=== PATIENT | female | born 1940 | race Caucasian/White ===

== ENCOUNTER 2018-05-20 07:12 | Day surgery (SDC) | payer MEDICARE, OTHER ==
[~2018-05-20 07:12] MED LIST: Cefuroxime 10 MG/ML SYRINGE EYELF SCH; Lidocaine 1% PF 2 ML SDV INJECT SCH; Pilocarpine 4% Ophth Soln 15 ML Bot EYELF SCH; Polymyxin B/Trimethoprim 10 ML Bottle EYELF SCH
[2018-05-20] MEDS: Ofloxacin 0.3% Ophth Soln 5 ML Bottle EYELF SCH ×3 (07:21→08:27)
[2018-05-20] MEDS: Brimonidine 0.2% Ophth Soln 5 ML Bottle EYELF SCH ×2 (07:25→07:52)
--- NOTE | 2018-05-20 07:26 | PCM.PREANE ---
Preanesthetic Assessment - Anesthesia/Transfusion/Family Hx Anesthesia History: Prior Anesthesia Without Reaction Family History of Anesthesia Reaction: No Transfusion History: No Prior Transfusion(s) - Review of Systems General: Other (current cold with nasal drainage) Pulmonary: No Symptoms Cardiovascular: No Symptoms, Other (HTN, increased cholesterol) Gastrointestinal: No Symptoms Neurological: No Symptoms - Physical Assessment NPO Status Date: 05/19/18 NPO Status Time: 22:00 Pulse: 82 O2 Sat by Pulse Oximetry: 100 Respiratory Rate: 16 Blood Pressure: 133/75 Height: 1.55 m Weight: 58.967 kg ASA Class: 2 Mental Status: Alert & Oriented x3 Airway Class: Mallampati = 2 Dentition: Reports: Normal Dentition, Dentures (upper), Partial (lower) Thyro-Mental Finger Breadths: 3 Mouth Opening Finger Breadths: 3 ROM/Head Extension: Full Lungs: Clear to Auscultation, Normal Respiratory Effort Cardiovascular: Regular Rate, Regular Rhythm - Allergies Allergies/Adverse Reactions: Allergies Allergy/AdvReac Type Severity Reaction Status Date / Time niacin Allergy Rash Verified 05/19/18 10:29 Sulfa (Sulfonamide Allergy Rash Verified 05/19/18 10:29 Antibiotics) atorvastatin [From Lipitor] AdvReac Muscle Verified 05/19/18 10:43 Aches rosuvastatin [From Crestor] AdvReac Muscle Verified 05/19/18 10:43 Aches simvastatin AdvReac Muscle Verified 05/19/18 10:43 Aches - Blood Blood Available: No Product(s) Available: None - Anesthesia Plan Pre-Op Medication Ordered: None - Acknowledgements Anesthesia Type Planned: MAC Pt an Appropriate Candidate for the Planned Anesthesia: Yes Alternatives and Risks of Anesthesia Discussed w Pt/Guardian: Yes Pt/Guardian Understands and Agrees with Anesthesia Plan: Yes PreAnesthesia Questionnaire - HOME MEDS Home Medications: Home Meds Alendronate Sodium [Fosamax] 70 mg PO WE 05/19/18 [History] Fenofibrate Nanocrystallized [Fenofibrate] 145 mg PO DAILY 05/19/18 [History] Lisinopril 5 mg PO DAILY 05/19/18 [History] - CURRENT (IN HOUSE) MEDS Current Meds: Current Medications Brimonidine Tartrate (Alphagan 0.2% Oph Soln) 0 ml EYELF ASDIRECTED DEBRA Stop: 05/20/18 18:00 Cefuroxime Sodium (Zinacef) 0 mg EYELF ASDIRECTED DEBRA Stop: 05/20/18 18:00 Lidocaine HCl (Xylocaine-Mpf 1%) 0 ml INJECT ASDIRECTED DEBRA Stop: 05/20/18 18:00 Ofloxacin (Ocuflox 0.3% Ophth Soln) 0 ml EYELF ASDIRECTED DEBRA Stop: 05/20/18 18:00 Phenylephrine HCl (Ry-Synephrine 2.5% Ophth Soln) 0 ml EYELF ASDIRECTED DEBRA Stop: 05/20/18 18:00 Pilocarpine HCl (Pilocar 4% Ophth Soln) 0 ml EYELF ASDIRECTED DEBRA Stop: 05/20/18 18:00 Tetracaine HCl (Tetracaine 0.5% Steri-Unit Libertad) 0 ml EYELF ASDIRECTED DEBRA Stop: 05/20/18 18:00 Tropicamide (Mydriacyl 1% Ophth Soln) 0 ml EYELF ASDIRECTED DEBRA Stop: 05/20/18 18:00
[2018-05-20] MEDS: Phenylephrine 2.5% Ophth Soln 2 ML Bot EYELF SCH ×5 (07:29→08:04)
[2018-05-20] MEDS: Tropicamide 1% Ophth Soln 15 ML Bottle EYELF SCH ×5 (07:34→08:27)
[2018-05-20] MEDS: Tetracaine HCl/PF 0.5% 4 ML Bottle EYELF SCH ×2 (07:58→08:21)
--- NOTE | 2018-05-20 08:28 | PCM48HPAN ---
Post Anesthesia Note - EVALUATION WITHIN 48HRS OF ANESTHETIC Vital Signs in Normal Range: Yes Patient Participated in Evaluation: Yes Respiratory Function Stable: Yes Airway Patent: Yes Cardiovascular Function Stable: Yes Hydration Status Stable: Yes Pain Control Satisfactory: Yes Nausea and Vomiting Control Satisfactory: Yes Mental Status Recovered: Yes Pulse Rate: 82 Resp Rate: 16 Blood Pressure: 133/75
== END 2018-05-20 08:39 | disposition home or self-care (01) ==
LOC: JD.SDS 07:12
PROVIDERS: ATTEND Ophthalmology
DX: H25.813 Combined forms of age-related cataract, bilateral (principal); H40.1134 Primary open-angle glaucoma, bilateral, indeterminate stage; H35.3131 Nonexudative age-related macular degeneration, bilateral, early dry stage; H35.363 Drusen (degenerative) of macula, bilateral; H16.223 Keratoconjunctivitis sicca, not specified as Sjogren's, bilateral; H02.831 Dermatochalasis of right upper eyelid; I10 Essential (primary) hypertension; E78.00 Pure hypercholesterolemia, unspecified; Z79.899 Other long term (current) drug therapy
CPT/HCPCS: 66984; A9270; J0697; J2001; C1780

== ENCOUNTER 2018-06-17 10:32 | Day surgery (SDC) | payer MEDICARE, OTHER ==
[2018-06-17] MEDS: Ofloxacin 0.3% Ophth Soln 5 ML Bottle EYERT SCH ×4 (11:00→12:46)
[2018-06-17] MEDS: Brimonidine 0.2% Ophth Soln 5 ML Bottle EYERT SCH ×4 (11:05→12:46)
--- NOTE | 2018-06-17 11:09 | PCM.PREANE ---
Preanesthetic Assessment - Anesthesia/Transfusion/Family Hx Anesthesia History: Prior Anesthesia Without Reaction Family History of Anesthesia Reaction: No Transfusion History: No Prior Transfusion(s) - Review of Systems General: No Symptoms Pulmonary: No Symptoms Cardiovascular: No Symptoms Gastrointestinal: No Symptoms Neurological: No Symptoms Other: Reports: None - Physical Assessment NPO Status Date: 06/16/18 NPO Status Time: 20:30 Pulse: 57 O2 Sat by Pulse Oximetry: 96 Respiratory Rate: 16 Blood Pressure: 134/58 Temperature: 97.7 C ASA Class: 2 Mental Status: Alert & Oriented x3 Airway Class: Mallampati = 1 Dentition: Reports: Dentures (upper), Partial (lower) Thyro-Mental Finger Breadths: 3 Mouth Opening Finger Breadths: 3 ROM/Head Extension: Full Lungs: Clear to Auscultation, Normal Respiratory Effort Cardiovascular: Regular Rate, Regular Rhythm - Allergies Allergies/Adverse Reactions: Allergies Allergy/AdvReac Type Severity Reaction Status Date / Time niacin Allergy Rash Verified 06/16/18 14:46 Sulfa (Sulfonamide Allergy Rash Verified 06/16/18 14:46 Antibiotics) atorvastatin [From Lipitor] AdvReac Muscle Verified 06/16/18 14:46 Aches rosuvastatin [From Crestor] AdvReac Muscle Verified 06/16/18 14:46 Aches simvastatin AdvReac Muscle Verified 06/16/18 14:46 Aches - Acknowledgements Anesthesia Type Planned: MAC Pt an Appropriate Candidate for the Planned Anesthesia: Yes Alternatives and Risks of Anesthesia Discussed w Pt/Guardian: Yes Pt/Guardian Understands and Agrees with Anesthesia Plan: Yes PreAnesthesia Questionnaire HEENT History: Reports: Cataract Cardiovascular History: Reports: High Cholesterol, Hypertension Respiratory History: Reports: None Gastrointestinal History: Reports: None Genitourinary History: Reports: None Musculoskeletal History: Reports: Back Pain, Chronic Endocrine/Metabolic History: Reports: None - Past Surgical History HEENT Surgical History: Reports: Cataract Surgery - SUBSTANCE USE Smoking Status *Q: Never Smoker - HOME MEDS Home Medications: Home Meds Alendronate Sodium [Fosamax] 70 mg PO WE 05/19/18 [History] Fenofibrate Nanocrystallized [Fenofibrate] 145 mg PO DAILY 05/19/18 [History] Lisinopril 5 mg PO DAILY 05/19/18 [History] - CURRENT (IN HOUSE) MEDS Current Meds: Current Medications Brimonidine Tartrate (Alphagan 0.2% Ophth Soln) 0 ml EYERT ASDIRECTED DEBRA Stop: 06/17/18 18:00 Cefuroxime Sodium (Zinacef) 0 mg EYERT ASDIRECTED DEBRA Stop: 06/17/18 18:00 Lidocaine HCl (Xylocaine-Mpf 1%) 0 ml INJECT ASDIRECTED DEBRA Stop: 06/17/18 18:00 Ofloxacin (Ocuflox 0.3% Ophth Soln) 0 ml EYERT ASDIRECTED DEBRA Stop: 06/17/18 18:00 Phenylephrine HCl (Ry-Synephrine 2.5% Ophth Soln) 0 ml EYERT ASDIRECTED DEBRA Stop: 06/17/18 18:00 Pilocarpine HCl (Pilocar 4% Ophth Soln) 0 ml EYERT ASDIRECTED DEBRA Stop: 06/17/18 18:00 Tetracaine HCl (Tetracaine 0.5% Steri-Unit Libertad) 0 ml EYERT ASDIRECTED DEBRA Stop: 06/17/18 18:00 Tropicamide (Mydriacyl 1% Ophth Soln) 0 ml EYERT ASDIRECTED DEBRA Stop: 06/17/18 18:00
[2018-06-17] MEDS: Phenylephrine 2.5% Ophth Soln 2 ML Bot EYERT SCH ×6 (11:10→12:21)
[2018-06-17] MEDS: Tropicamide 1% Ophth Soln 15 ML Bottle EYERT SCH ×4 (11:15→11:55)
[2018-06-17] MEDS: Lidocaine 1% PF 2 ML SDV INJECT SCH ×2 (11:44→12:35)
[2018-06-17] MEDS: Tetracaine HCl/PF 0.5% 4 ML Bottle EYERT SCH ×5 (11:44→12:35)
[2018-06-17] MEDS: Cefuroxime 10 MG/ML SYRINGE EYERT SCH ×2 (11:45→12:45)
[2018-06-17] MEDS: Pilocarpine 4% Ophth Soln 15 ML Bot EYERT SCH ×2 (11:45→12:46)
--- NOTE | 2018-06-17 12:49 | PCM48HPAN ---
Post Anesthesia Note - EVALUATION WITHIN 48HRS OF ANESTHETIC Vital Signs in Normal Range: Yes Patient Participated in Evaluation: Yes Respiratory Function Stable: Yes Airway Patent: Yes Cardiovascular Function Stable: Yes Hydration Status Stable: Yes Pain Control Satisfactory: Yes Nausea and Vomiting Control Satisfactory: Yes Mental Status Recovered: Yes
== END 2018-06-17 13:00 | disposition home or self-care (01) ==
LOC: JD.SDS 10:32
PROVIDERS: ATTEND Ophthalmology
DX: H25.811 Combined forms of age-related cataract, right eye (principal); H16.103 Unspecified superficial keratitis, bilateral; H16.223 Keratoconjunctivitis sicca, not specified as Sjogren's, bilateral; H02.834 Dermatochalasis of left upper eyelid; H02.831 Dermatochalasis of right upper eyelid; I10 Essential (primary) hypertension; E78.00 Pure hypercholesterolemia, unspecified; M81.0 Age-related osteoporosis without current pathological fracture; Z88.2 Allergy status to sulfonamides; Z88.8 Allergy status to other drugs, medicaments and biological substances; Z98.42 Cataract extraction status, left eye; Z96.1 Presence of intraocular lens; Z83.518 Family history of other specified eye disorder; Z79.899 Other long term (current) drug therapy
CPT/HCPCS: 66984; A9270; C1780; J0697; J2001

== ENCOUNTER 2021-10-23 10:30 | Day surgery (SDC) | payer MEDICARE, OTHER ==
[~2021-10-23 10:30] MED LIST changes: -Cefuroxime 10 MG/ML SYRINGE EYELF SCH; +EPINEPHrine 1 MG/ML SDV ONE; +Lactated Ringers 1,000 ML IV SCH; -Lidocaine 1% PF 2 ML SDV INJECT SCH; +Lidocaine 1%/Sod Bicarbonate in NS 8.4% 1 ML Syringe IDERM PRN; -Pilocarpine 4% Ophth Soln 15 ML Bot EYELF SCH; -Polymyxin B/Trimethoprim 10 ML Bottle EYELF SCH; +Ropivacaine 0.5% 5 MG/ML 30 ML SDV ONE; +Sodium Chloride 0.9% 10 ML Syringe FLUSH PRN; +Sodium Chloride 0.9% 10 ML Syringe FLUSH SCH
[2021-10-23] MEDS ORDERED: Dexamethasone 4 MG/ML 5 ML MDV ONE (10:46)
[2021-10-23] MEDS ORDERED: Ondansetron 4 MG/2 ML SDV ONE (10:46)
[2021-10-23] MEDS ORDERED: Lidocaine 1% 4 ML ONE (10:46)
[2021-10-23] MEDS ORDERED: ceFAZolin 2 GM Vial ONE (11:04)
[2021-10-23] MEDS ORDERED: Rocuronium 50 MG/5 ML Vial ONE (11:04)
[2021-10-23] MEDS ORDERED: Lactated Ringers 1,000 ML ONE (11:04)
[2021-10-23] MEDS ORDERED: Midazolam 1 MG/ML 2 ML SDV ONE (11:04)
[2021-10-23] MEDS ORDERED: fentaNYL 100 MCG/2 ML SDV ONE (11:04)
[2021-10-23] MEDS ORDERED: Vancomycin 1 GM SDV ONE (12:20)
[2021-10-23] MEDS ORDERED: ePHEDrine 50 MG/ML SDV ONE (13:02)
[2021-10-23] MEDS ORDERED: Neostigmine Methylsulfate 10 MG/10 ML MDV ONE (13:02)
[2021-10-23] MEDS ORDERED: HYDROmorphone 0.5 MG/0.5 ML Syringe IVPUSH PRN ×2 (13:06→14:24)
[2021-10-23] MEDS ORDERED: Ondansetron 4 MG/2 ML SDV IVPUSH PRN ×2 (13:06→14:24)
[2021-10-23] MEDS ORDERED: fentaNYL 100 MCG/2 ML SDV IVPUSH PRN ×2 (13:06→14:24)
[2021-10-23] MEDS ORDERED: Propofol 200 MG/20 ML SDV ONE (14:04)
[2021-10-23] MEDS ORDERED: Acetaminophen/HYDROcodone 325-5 MG Tab PO ONE (15:00)
== END 2021-10-23 16:50 | disposition home or self-care (01) ==
LOC: JD.SDS 10:30 → EDSTATUS 14:00 → JD.SDS 16:50
PROVIDERS: ATTEND Orthopaedic Surgery
DX: M19.012 Primary osteoarthritis, left shoulder (principal); M75.102 Unspecified rotator cuff tear or rupture of left shoulder, not specified as traumatic; I10 Essential (primary) hypertension; E78.00 Pure hypercholesterolemia, unspecified; M81.0 Age-related osteoporosis without current pathological fracture; F32.A Depression, unspecified; Z79.899 Other long term (current) drug therapy; Z88.8 Allergy status to other drugs, medicaments and biological substances; Z88.2 Allergy status to sulfonamides; Z98.890 Other specified postprocedural states
CPT/HCPCS: 23472; 73020; 76000; 97166; A9270; C1713; C1769; C1776; J0171; J0690; J1100; J2250; J2405; J2704; J2710; J2795; J3010; J3370; J7120; 01638; 64415; 76942; 99100